=== PATIENT | male | born 1980 | race Caucasian/White ===

== ENCOUNTER 2016-12-20 14:14 | Emergency (ER) | payer BC ==
[~2016-12-20] VITALS: Ht 180.3 cm; Wt 108.9 kg
--- NOTE | 2016-12-20 14:28 | NUR ---
ARRIVAL PATIENT ARRIVED TO [facility] AMBULAT[facility], C/O OF RIGHT KNEE PAIN TODAY, PATIENT STATES HE WAS GETTING OUT OF HIS TRUCK WEDNESDAY WHEN HE FELT A "POP". PAIN HAS INCREASED OVER THE FAST FEW DAYS, DECIDED TO COME TO ED FOR FURTHER EVAL BY EDP. RANGE OF MOTION LIMITED, SWELLING NOTED.
--- NOTE | 2016-12-20 14:38 | ER.PDOC ---
General Chief Complaint: Extremities Stated Complaint: KNEE PAIN Time seen by MD: 14:38 Source: patient Exam Limitations: no limitations History of Present Illness Onset: other (48 hrs ago) Where: work Context: fall, twist Severity: moderate Associated Symptoms: unable to bear weight Allergies: Coded Allergies: nalbuphine (Unverified Allergy, Unknown, 10/06/14) Home Meds Unable to Obtain Active Prescriptions or Reported Meds Past Medical History Medical History: high cholesterol, thyroid disease Surgical History: appendectomy, cholecystectomy Family History Significant Family History: no pertinent family hx Social History Smoking: non-smoker Alcohol Use: none Drug Use: none Review of Systems Constitutional: denies fever Respiratory: denies cough Cardiovascular: denies chest pain Musculoskeletal: joint swelling Skin: denies rash Psychiatric/Neurological: denies weakness All Other Systems: Reviewed and Negative Physical Exam General Appearance: Anxious, Mild Distress Foot: nml inspection, non-tender, nml color/temp, skin intact Ankle: nml inspection, non-tender, nml ROM, no joint swelling, skin intact Knee: tenderness, swelling, joint effusion, limited ROM by pain Thigh/Hip: nml inspection Gait: antalgic gait Neuro/Vasc/Tendon: sensation nml, motor nml, no vascular compromise, tendon function nml Skin: warm/dry Head/ENT: nml inspection, pharynx nml Neck/Back: nml inspection, non-tender Abdomen: non-tender, pelvis stable Results/Orders Results/Orders Administered Medications Medications (Trade) Dose Ordered Sig/July Route PRN Reason Start Time Stop Time Status Last Admin Dose Admin Ketorolac Tromethamine (Toradol) 60 mg OT ONCE IM 12/20/16 15:00 12/20/16 15:01 DC 12/20/16 14:56 Progress Progress toradol 60 mg im will check x rays xrays neg will d/c with ruddy wrap tylenol #3 f/u [facility] EKG/XRAY/CT/US XRAY: knee (neg) Departure Time of Disposition: 15:07 Disposition: 01 HOME, SELF-CARE Impression: Primary Impression: Right knee sprain Condition: Stable Referrals: PCP,UNKNOWN (PCP) PRIMARY CARE PROVIDER Additional Instructions: ruddy ice tylenol #3 f/u with [facility] Scripts Unable to Obtain Active Prescriptions or Reported Meds CT CONCEPCION MD Dec 20, 2016 14:38
[2016-12-20] MEDS ORDERED: TORADOL ONE (14:49)
--- NOTE | 2016-12-20 14:57 | DIREP ---
PROCEDURE:XRAY KNEE 3 VIEWS-RT COMPARISON:None. INDICATIONS:pain FINDINGS: BONES:Three views of the right knee. No acute fracture, joint effusion or loose bodies are seen in the right knee. JOINTS:Normal. No joint effusion seen in the suprapatellar bursa. SOFT TISSUES:Normal. OTHER:No additional findings. CONCLUSION:No acute findings in the three views of the right knee. No fracture, joint effusion or foreign body/loose bodies are seen in the suprapatellar bursa. Dictated by: Alexy Alvarado MD on 12/20/2016 at 02:56 PM
[2016-12-20] MEDS ORDERED: TORADOL IM ONE (15:00)
[2016-12-20 15:16] VITALS: BP 163/82
== END 2016-12-20 15:15 | disposition home or self-care (01) ==
LOC: ER 14:14
DX: S83.91XA Sprain of unspecified site of right knee, initial encounter (principal); E07.9 Disorder of thyroid, unspecified; E78.00 Pure hypercholesterolemia, unspecified; Z90.49 Acquired absence of other specified parts of digestive tract; Z88.5 Allergy status to narcotic agent; W19.XXXA Unspecified fall, initial encounter; Y93.89 Activity, other specified; Y92.69 Other specified industrial and construction area as the place of occurrence of the external cause; Y99.0 Civilian activity done for income or pay
CPT/HCPCS: 73562; 96372; 99284; J1885

== ENCOUNTER 2019-09-01 20:04 | Emergency (ER) | payer OTHER ==
[~2019-09-01] VITALS: Ht 180.3 cm; Wt 99.8 kg
[2019-09-01 20:15] VITALS: BP 128/84
--- NOTE | 2019-09-01 20:15 | NUR ---
ARRIVAL PATIENT PRESENTS WITH COMPLAINTS OF LEFT ELBOW PAIN SINCE THIS AM. PATIENT REPORTS HX BURSITIS AND STATES THAT HE HAS BEEN MOVING THINGS ALL DAY. LEFT ELBOW IS TENDER, SWOLLEN AND WARM TO TOUCH. NEURO INTACT. VSS. MD CHUCK NOTIFIED.
[2019-09-01] MEDS ORDERED: TORADOL IM STA (20:56)
[2019-09-01] MEDS ORDERED: TORADOL ONE (21:05)
[2019-09-01 21:12] LABS: BASOPHIL # 0.1 10^3/uL (0.0-0.1); BASOPHIL % 0.5 % (0.0-0.2); EOSINOPHIL # 0.4 10^3/uL (0.0-0.2); EOSINOPHIL % 3.3 % (0.0-5.0); LYMPHOCYTES # 2.02 10^3/uL1 (1.0-4.8); LYMPHOCYTES % 18.6 % (24.0-44.0); MEAN CORP HGB 29.9 pg (26-34); MONOCYTES # 0.8 10^3/uL (0.3-0.8); NEUTROPHIL # 7.7 10^3/uL (1.8-7.7); NEUTROPHILS % 70.5 % (41.0-85.0); PLATELET COUNT 207 10^3/uL (150-400); RED CELL DISTRIBUTION WIDTH 12.2 % (11.5-14.5)
--- NOTE | 2019-09-01 21:14 | ER.PDOC ---
General Chief Complaint: Extremities Stated Complaint: ELBOW PAIN Time seen by MD: 21:10 Source: patient Exam Limitations: no limitations History of Present Illness Initial Comments Left elbow pain today of sudden onset. He has been moving things around today. He also has gout. No fever or chills. Occurred: this evening Where: home Severity: moderate Exacerbated By: nothing Relieved By: nothing Quality: pain, swelling, tenderness Allergies: Coded Allergies: nalbuphine (Unverified Allergy, Unknown, 10/06/14) Home Meds Unable to Obtain Active Prescriptions or Reported Meds Past Medical History Medical History: diabetes, hypertension, other Surgical History: appendectomy, cholecystectomy Social History Alcohol Use: none Drug Use: none Review of Systems Constitutional: no symptoms reported Respiratory: no symptoms reported Cardiovascular: no symptoms reported Gastrointestinal: no symptoms reported Musculoskeletal: see HPI All Other Systems: Reviewed and Negative Physical Exam General Appearance: alert, no distress Upper Extremity: tenderness (posterior left elbow, warm to touch and mildly swollen), swelling (with no fluctuancy) Skin: warmth Vascular: no vascular compromise Neuro/Psych: sensation nml, motor nml Central Exam: oriented X3, CN's nml as tested, nml speech, nml cognition, nml mood/affect Neck/Back: nml inspection Respiratory: no resp distress, breath sounds nml CVS: reg rate & rhythm, heart sounds nml Abdomen: non-tender, no organomegaly, nml bowels sounds Results/Orders Results/Orders Orders - WINNIE WOODS MD Cbc With Auto Diff (09/01/19 20:56) Basic Metabolic Panel (09/01/19 20:56) Uric Acid (09/01/19 20:56) C-Reactive Protein (09/01/19 20:56) Erythrocyte Sedimentation Rate (09/01/19 20:56) Xr Elbow Rt (09/01/19 20:56) Ketorolac Tromethamine (Toradol) (09/01/19 20:56) Ketorolac Tromethamine (Toradol) (09/01/19 21:05) Triamcinolone Acetonide (Kenalog-40) (09/01/19 22:19) Triamcinolone Acetonide (Kenalog-40) (09/01/19 22:18) Vital Signs Date Time Temp Pulse Resp B/P (MAP) Pulse Ox O2 Delivery O2 Flow Rate FiO2 09/01/19 20:15 99.2 90 18 100 09/01/19 20:15 99.2 90 18 09/01/19 20:15 99.2 90 18 128/84 (99) 100 Room Air Administered Medications Medications (Trade) Dose Ordered Sig/July Route PRN Reason Start Time Stop Time Status Last Admin Dose Admin Ketorolac Tromethamine (Toradol) 60 mg STAT STAT IM 09/01/19 20:56 09/01/19 20:58 DC 09/01/19 21:12 60 MG Laboratory Tests Test 09/01/19 21:05 White Blood Count 10.9 10^3/uL (4.5-11.0) Red Blood Count 4.72 10^6/uL (4.50-5.90) Hemoglobin 14.1 g/dL (13.9-16.3) Hematocrit 40.7 % (37.0-53.0) Mean Corpuscular Volume 86.2 fL (78-100) Mean Corpuscular Hemoglobin 29.9 pg (26-34) Mean Corpuscular Hemoglobin Concent 34.6 g/dL (33-36.5) Red Cell Distribution Width 12.2 % (11.5-14.5) Platelet Count 207 10^3/uL (150-400) Mean Platelet Volume 11.7 fL (7.8-11.0) H Neutrophils (%) (Auto) 70.5 % (41.0-85.0) Lymphocytes (%) (Auto) 18.6 % (24.0-44.0) L Monocytes (%) (Auto) 7.0 % (5.0-12.0) Neutrophils # (Auto) 7.7 10^3/uL (1.8-7.7) Lymphocytes # (Auto) 2.02 10^3/uL1 (1.0-4.8) Monocytes # (Auto) 0.8 10^3/uL (0.3-0.8) Absolute Immature Granulocyte (auto 0.01 10^3 u/L (0-2) Absolute Eosinophils (auto) 0.4 10^3/uL (0.0-0.2) H Immature Granulocytes % 0.10 % (0.00-0.50) Eosinophils % 3.3 % (0.0-5.0) Basophils % 0.5 % (0.0-0.2) H Basophils # 0.1 10^3/uL (0.0-0.1) Erythrocyte Sedimentation Rate 10 mm/hr (0-20) Sodium Level 138 mmol/L (132-145) Potassium Level 3.8 mmol/L (3.6-5.2) Chloride Level 101.0 mmol/L (96-109) Carbon Dioxide Level 29.7 mmol/L (20.0-32) Glucose Level 229 mg/dL (70-110) H Blood Urea Nitrogen 14 mg/dL (7-18) Creatinine 1.27 mg/dL (0.59-1.40) Calcium Level 9.2 mg/dL (8.4-10.5) Anion Gap 11.1 Estimated GFR () 77.2 (>/=60) Est GFR (CKD-EPI)(Non-Afr [place]) 63.8 (>/=60) BUN/Creatinine Ratio 11.0 Uric Acid 5.7 mg/dL (3.5-7.2) C-Reactive Protein 2.84 mg/dL (0.00-5.00) Progress Progress Labs reviewed with patient and will empirically cover with antibiotics for infection as a differential. EKG/XRAY/CT/US XRAY: elbow (Nothing acute on left elbow X rays) Departure Time of Disposition: 22:27 Disposition: 01 HOME, SELF-CARE Impression: Primary Impression: Bursitis Condition: Stable Referrals: PCP,UNKNOWN (PCP) PRIMARY CARE PROVIDER Additional Instructions: Indomethacin Bactrim DS F/U with your PCP in 2-3 days Return to ED if worsening symptoms or concerns. Scripts Unable to Obtain Active Prescriptions or Reported Meds Duration or Time Spent with Pa: 45 mins Problem Qualifiers Primary Impression: Bursitis Bursitis location: elbow Elbow bursitis location: unspecified Laterality: left Qualified Codes: M70.32 - Other bursitis of elbow, left elbow WINNIE WOODS MD Sep 01, 2019 21:14
[2019-09-01 21:15] VITALS: BP 156/100
[2019-09-01 21:25] LABS: CALCIUM 9.2 mg/dL (8.4-10.5); CARBON DIOXIDE 29.7 mmol/L (20.0-32)
--- NOTE | 2019-09-01 21:40 | DIREP ---
PROCEDURE:XRAY ELBOW 2VWS-LEFT COMPARISON:None. INDICATIONS:pain FINDINGS: Please note that the request says right and radiographs of the left elbow have been performed. BONES:AP and lateral views of the left elbow. No acute fracture of the distal left humerus, radial head or neck on the proximal ulna is seen. No joint effusion or loose bodies are seen. JOINTS:Normal. No displaced anterior or posterior fat pads. SOFT TISSUES:Normal. OTHER:Normal. CONCLUSION:No acute findings in the two views of the left elbow. Discrepancy in the Side of the radiograph performed is noted above. Dictated by: Alexy Alvarado MD on 09/01/2019 at 09:37 PM ECTION procedure angie [id number]
[2019-09-01 22:10] LABS: ERYTHROCYTE SEDIMENTATION RATE 10 mm/hr (0-20)
[2019-09-01 22:15] VITALS: BP 118/55
[2019-09-01] MEDS ORDERED: KENALOG-40 ONE (22:18)
[2019-09-01] MEDS ORDERED: KENALOG-40 IM STA (22:19)
[2019-09-01] MEDS ORDERED: BACTRIM DS PO STA (22:29)
[2019-09-01] MEDS ORDERED: BACTRIM DS ONE (22:45)
== END 2019-09-01 22:52 | disposition home or self-care (01) ==
LOC: ER 20:04
DX: M70.32 Other bursitis of elbow, left elbow (principal); M10.9 Gout, unspecified; I10 Essential (primary) hypertension; E11.9 Type 2 diabetes mellitus without complications; Z79.1 Long term (current) use of non-steroidal anti-inflammatories (NSAID); Z90.49 Acquired absence of other specified parts of digestive tract
CPT/HCPCS: 36415; 73070; 80048; 84550; 85025; 85651; 86140; 96372; 99284; J1885; J3301